=== PATIENT | male | born 1960 | race Caucasian/White ===

== ENCOUNTER 2020-11-27 08:55 | Inpatient (IN) | payer OTHER ==
[2020-11-27 13:27] VITALS: BMI 31.1
[2020-11-27] MEDS ORDERED: MAGNESIUM HYDROX 2400MG/30ML ORAL SUSPENSION 30 ML CUP PO PRN (13:45)
[2020-11-27] MEDS ORDERED: IBUPROFEN 400 MG TABLET (FP) PO PRN (13:45)
[2020-11-27] MEDS ORDERED: BISMUTH SUBSALICYLATE 524 MG/30 ML PO PRN (13:45)
[2020-11-27] MEDS ORDERED: ONDANSETRON *ODT* 4 MG TABLET SL PRN (13:45)
[2020-11-27] MEDS ORDERED: cloNIDine HCL 0.1 MG TABLET PO PRN (13:45)
[2020-11-27] MEDS ORDERED: MAGNESIUM CITRATE 300 ML BOTTLE PO PRN (13:45)
[2020-11-27] MEDS ORDERED: MENTHOL/PHENOL 1 EACH UD MM PRN (13:45)
[2020-11-27] MEDS ORDERED: ACETAMINOPHEN 325 MG TABLET (FP) PO PRN (13:45)
[2020-11-27] MEDS ORDERED: NICOTINE 10 MG CARTRIDGE (INHALER) IH PRN (13:45)
[2020-11-27] MEDS ORDERED: MAG HYDROX/AL HYDROX/SIMETH 30 ML UNIT-DOSE CUP PO PRN (13:45)
[2020-11-27] MEDS ORDERED: methaDONE HCL 10 MG TABLET (FOR DETOX USE ONLY) PO ONE (14:00)
[2020-11-27] MEDS: clonazePAM 0.5 MG ODT TABLETS SL PRN (17:51)
[2020-11-27] MEDS: hydrOXYzine PAMOATE 25 MG CAPSULE (FP) PO PRN (17:51)
[2020-11-27] MEDS ORDERED: PATIENT'S OWN MEDICATION (NON-FORMULARY) (Clonidine Hcl [Clonidine Hcl] 0.2 MG Tablet) PO SCH (22:00)
[2020-11-27] MEDS: THIAMINE HCL 100 MG TABLET (FP) PO SCH (22:40)
[2020-11-27] MEDS: ATORVASTATIN CA 10 MG TABLET (FP) PO SCH (22:40)
[2020-11-27] MEDS: MELATONIN 5 MG TABLETS PO SCH (22:40)
[2020-11-27] MEDS: cloNIDine HCL 0.1 MG TABLET PO SCH (23:44)
[2020-11-28] MEDS: metFORMIN HCL 500 MG TABLET (FP) PO SCH (06:05)
[2020-11-28] MEDS: clonazePAM 0.5 MG ODT TABLETS SL PRN (06:06)
[2020-11-28] MEDS ORDERED: methaDONE HCL 10 MG TABLET (FOR DETOX USE ONLY) ONE (09:50)
[2020-11-28] MEDS: TAMSULOSIN HCL 0.4 MG CAP PO SCH (10:29)
[2020-11-28] MEDS: cloNIDine HCL 0.1 MG TABLET PO SCH ×2 (10:29→22:19)
[2020-11-28] MEDS: DULoxetine HCL 60 MG CAPSULE.DR PO SCH (10:29)
[2020-11-28] MEDS: LISINOPRIL 20 MG TABLET PO SCH (10:30)
[2020-11-28] MEDS: PRENATAL VITAMINS W/ FOLIC ACID TABLET (FP) PO SCH (10:30)
[2020-11-28] MEDS: NICOTINE 21 MG/24 HOURS TOPICAL PATCH TD SCH (10:30)
[2020-11-28] MEDS ORDERED: PNEUMOCOCCAL 23 VACCINE 0.5 ML VIAL IM ONE (12:00)
[2020-11-28] MEDS ORDERED: PNEUMOC 13-VAL CONJ-DIP CRM/PF 0.5 ML DISP.SYRIN IM ONE (12:00)
[2020-11-28 12:41] LABS: HEMATOCRIT 42.7 % (35.4-49); HEMOGLOBIN 14.5 GM/dL (11.7-16.9); MCH 28.5 pg (25.7-33.7); MCHC 33.9 g/dl (32.0-35.9); MEAN CELL VOLUME 84.1 fl (80-96); MEAN PLT VOLUME 8.8 fl (7.5-11.1); PLATELET COUNT 343 10^3/uL (134-434); RBC 5.08 M/mm3 (4.00-5.60); RDW 13.9 % (11.9-15.9); WHITE BLOOD COUNT 11.4 K/mm3 (4.0-10.0)
[2020-11-28 12:53] LABS: CALCIUM 9.2 mg/dL (8.5-10.1)
[2020-11-28 12:54] LABS: ALBUMIN 3.8 g/dl (3.4-5.0); BLOOD UREA NITROGEN 14.2 mg/dL (7-18)
[2020-11-28 12:57] LABS: CREATININE 0.9 mg/dL (0.55-1.3)
[2020-11-28 12:59] LABS: BILIRUBIN,TOTAL 0.9 mg/dL (0.2-1); TOT PROT 7.2 g/dl (6.4-8.2)
[2020-11-28] MEDS: diazePAM 5 MG TABLET PO PRN ×2 (15:47→22:22)
[2020-11-28] MEDS: MELATONIN 5 MG TABLETS PO SCH (22:19)
[2020-11-28] MEDS: ATORVASTATIN CA 10 MG TABLET (FP) PO SCH (22:19)
[2020-11-28] MEDS: THIAMINE HCL 100 MG TABLET (FP) PO SCH (22:19)
[2020-11-28] MEDS: ACETAMINOPHEN 325 MG TABLET (FP) PO PRN (22:24)
[2020-11-29] MEDS: diazePAM 5 MG TABLET PO PRN ×2 (01:40→06:33)
[2020-11-29] MEDS: metFORMIN HCL 500 MG TABLET (FP) PO SCH (06:30)
[2020-11-29] MEDS ORDERED: methaDONE HCL 10 MG TABLET (FOR DETOX USE ONLY) PO ONE (10:00)
[2020-11-29] MEDS: cloNIDine HCL 0.1 MG TABLET PO SCH ×2 (10:36→21:43)
[2020-11-29] MEDS: LISINOPRIL 20 MG TABLET PO SCH (10:37)
[2020-11-29] MEDS: DULoxetine HCL 60 MG CAPSULE.DR PO SCH (10:37)
[2020-11-29] MEDS: PRENATAL VITAMINS W/ FOLIC ACID TABLET (FP) PO SCH (10:37)
[2020-11-29] MEDS: METHOCARBAMOL 500 MG TABLET PO PRN (10:37)
[2020-11-29] MEDS: TAMSULOSIN HCL 0.4 MG CAP PO SCH (10:37)
[2020-11-29] MEDS: NICOTINE 21 MG/24 HOURS TOPICAL PATCH TD SCH (10:37)
[2020-11-29] MEDS: ACETAMINOPHEN 325 MG TABLET (FP) PO PRN ×2 (13:56→20:43)
[2020-11-29] MEDS ORDERED: cloNIDine HCL 0.1 MG TABLET PO ONE (15:38)
[2020-11-29] MEDS: MELATONIN 5 MG TABLETS PO SCH (21:42)
[2020-11-29] MEDS: ATORVASTATIN CA 10 MG TABLET (FP) PO SCH (21:43)
[2020-11-29] MEDS: THIAMINE HCL 100 MG TABLET (FP) PO SCH (21:43)
[2020-11-30] MEDS: ACETAMINOPHEN 325 MG TABLET (FP) PO PRN ×2 (02:48→13:49)
[2020-11-30] MEDS: metFORMIN HCL 500 MG TABLET (FP) PO SCH (06:56)
[2020-11-30] MEDS ORDERED: cloNIDine HCL 0.1 MG TABLET PO SCH (10:00)
[2020-11-30] MEDS ORDERED: methaDONE HCL 10 MG TABLET (FOR DETOX USE ONLY) ONE (10:01)
[2020-11-30] MEDS: cloNIDine HCL 0.1 MG TABLET PO SCH ×2 (10:17→22:01)
[2020-11-30] MEDS: TAMSULOSIN HCL 0.4 MG CAP PO SCH (10:17)
[2020-11-30] MEDS: METHOCARBAMOL 500 MG TABLET PO PRN (10:17)
[2020-11-30] MEDS: DULoxetine HCL 60 MG CAPSULE.DR PO SCH (10:18)
[2020-11-30] MEDS: LISINOPRIL 20 MG TABLET PO SCH (10:20)
[2020-11-30] MEDS: PRENATAL VITAMINS W/ FOLIC ACID TABLET (FP) PO SCH (10:20)
[2020-11-30] MEDS: NICOTINE 21 MG/24 HOURS TOPICAL PATCH TD SCH (10:20)
[2020-11-30] MEDS: hydrOXYzine PAMOATE 25 MG CAPSULE (FP) PO PRN (10:20)
[2020-11-30] MEDS ORDERED: cloNIDine HCL 0.1 MG TABLET PO ONE (13:30)
[2020-11-30] MEDS: diazePAM 5 MG TABLET PO PRN (22:02)
[2020-11-30] MEDS: ATORVASTATIN CA 10 MG TABLET (FP) PO SCH (22:02)
[2020-11-30] MEDS: MELATONIN 5 MG TABLETS PO SCH (22:03)
[2020-11-30] MEDS: THIAMINE HCL 100 MG TABLET (FP) PO SCH (22:03)
[2020-12-01] MEDS: diazePAM 5 MG TABLET PO PRN ×2 (06:02→14:40)
[2020-12-01] MEDS: metFORMIN HCL 500 MG TABLET (FP) PO SCH (07:47)
[2020-12-01] MEDS ORDERED: methaDONE HCL 10 MG TABLET (FOR DETOX USE ONLY) PO ONE (10:00)
[2020-12-01] MEDS: cloNIDine HCL 0.1 MG TABLET PO SCH ×2 (11:10→22:40)
[2020-12-01] MEDS: PRENATAL VITAMINS W/ FOLIC ACID TABLET (FP) PO SCH (11:10)
[2020-12-01] MEDS: DULoxetine HCL 60 MG CAPSULE.DR PO SCH (11:11)
[2020-12-01] MEDS: TAMSULOSIN HCL 0.4 MG CAP PO SCH (11:12)
[2020-12-01] MEDS: NICOTINE 21 MG/24 HOURS TOPICAL PATCH TD SCH (11:12)
[2020-12-01] MEDS: LISINOPRIL 20 MG TABLET PO SCH (11:23)
[2020-12-01] MEDS: ACETAMINOPHEN 325 MG TABLET (FP) PO PRN (16:20)
[2020-12-01] MEDS: ATORVASTATIN CA 10 MG TABLET (FP) PO SCH (22:40)
[2020-12-01] MEDS: MELATONIN 5 MG TABLETS PO SCH (22:40)
[2020-12-01] MEDS: THIAMINE HCL 100 MG TABLET (FP) PO SCH (22:40)
[2020-12-01] MEDS: METHOCARBAMOL 500 MG TABLET PO PRN (22:42)
[2020-12-01] MEDS: hydrOXYzine PAMOATE 25 MG CAPSULE (FP) PO PRN (22:42)
[2020-12-02] MEDS: metFORMIN HCL 500 MG TABLET (FP) PO SCH (06:21)
[2020-12-02] MEDS: TAMSULOSIN HCL 0.4 MG CAP PO SCH (09:45)
[2020-12-02] MEDS: LISINOPRIL 20 MG TABLET PO SCH (09:45)
[2020-12-02] MEDS: NICOTINE 21 MG/24 HOURS TOPICAL PATCH TD SCH (09:46)
[2020-12-02] MEDS: DULoxetine HCL 60 MG CAPSULE.DR PO SCH (09:46)
[2020-12-02] MEDS: PRENATAL VITAMINS W/ FOLIC ACID TABLET (FP) PO SCH (09:46)
[2020-12-02 10:40] VITALS: BP 150/107; PULSE 104; TEMP 96.8
== END 2020-12-02 10:05 | disposition home or self-care (01) | DRG 897 ==
LOC: YASAS 08:55 → Y3N 14:10
PROVIDERS: ADMIT Allergy & Immunology; ATTEND Allergy & Immunology
PROC: HZ2ZZZZ Detoxification Services for Substance Abuse Treatment (ICD-10-PCS; principal; 2020-11-27)
DX: F11.23 Opioid dependence with withdrawal (principal); F12.20 Cannabis dependence, uncomplicated; F17.210 Nicotine dependence, cigarettes, uncomplicated; F32.9 Major depressive disorder, single episode, unspecified; G47.33 Obstructive sleep apnea (adult) (pediatric); I10 Essential (primary) hypertension; E78.5 Hyperlipidemia, unspecified; R73.03 Prediabetes
CPT/HCPCS: 36415; 80053; 82962; 83036; 85027; 86780; 90732; 93005; 93010; C9803; G0009; J0735; Q0162; U0003; U0005